=== PATIENT | female | born 1955 | race Caucasian/White ===

== ENCOUNTER 2016-11-20 13:08 | Day surgery (SDC) | payer BC ==
[2016-11-20] MEDS ORDERED: PROPOFOL 10 MG/ML VIAL IV ONE (14:00)
[2016-11-20] MEDS ORDERED: FENTANYL PF 100MCG/2ML VIAL IV ONE (14:00)
[2016-11-20] MEDS ORDERED: LIDOCAINE 2% MDV (20MG/ML) 20ML VIAL IV ONE (14:00)
--- NOTE | 2016-11-24 08:31 | Operative Note ---
DATE OF SURGERY: 11/20/2016 REFERRING PROVIDER: Noble Saldana DO PREOPERATIVE DIAGNOSIS: Worsening heartburn. POSTOPERATIVE DIAGNOSIS: Includes normal EGD. OPERATION: ESOPHAGOGASTRODUODENOSCOPY with photo. PROCEDURE: After informed consent was obtained, the patient was placed in the left lateral decubitus position in the endoscopy suite, sedated and monitored by the Department of Anesthesia. Once sedated, a well-lubricated [id number] gastroscope was placed in the posterior oropharynx and under direct visualization passed to the proximal esophagus. The endoscope was advanced to the proximal, mid and distal esophagus. The esophagus, GE junction, gastric body, antrum, pylorus, duodenal bulb and sweep were unremarkable. No ulcers, erosions, strictures, varices, mass, lesions were seen throughout the length of the esophagus, stomach, and duodenum. J-turn views of the proximal stomach were unrevealing. The endoscope was straightened. The endoscope was then advanced back through the pylorus and the duodenum once again. No findings or abnormalities were identified. The endoscope was slowly retracted through the distal stomach, gastric body, proximal stomach, and esophagus. No new findings or abnormalities were identified. RECOMMENDATIONS: I would suggest the patient increase her Protonix to twice daily before breakfast and dinner. If her symptoms persist, further investigation such as consideration of a 48-hour BUI would be worthwhile. At this point, there is no endoscopic evidence of any acid peptic disorder. As always, thank you for allowing me to participate in the health care of your patients. Albert Birmingham DO CC: Noble Saldana DO [facility]
== END 2016-11-20 15:20 | disposition home or self-care (01) ==
LOC: HOP 13:08
PROVIDERS: ATTEND Internal Medicine Gastroenterology
DX: R12 Heartburn (principal); I10 Essential (primary) hypertension; E11.9 Type 2 diabetes mellitus without complications
CPT/HCPCS: 43235; 00740; J3010

== ENCOUNTER 2017-12-07 09:00 | Day surgery (SDC) | payer BC ==
[2017-12-07] MEDS ORDERED: LIDOCAINE 2% MDV (20MG/ML) 20ML VIAL IV ONE (09:01)
[2017-12-07] MEDS ORDERED: PROPOFOL 10 MG/ML VIAL IV ONE (09:01)
--- NOTE | 2017-12-08 12:40 | Operative Note ---
DATE OF SURGERY: 12/07/2017 OPERATION: COLONOSCOPY to the cecum. INDICATION: Family history of colon cancer in 2 uncles. The patient also has a prior history of diverticulitis. Colonoscopy was performed at this time for high-risk screening. It has been 5 years since her last exam. ANESTHESIA: Intravenous sedation was administered by the department of anesthesiology and included Diprivan titrated to effect. PROCEDURE: Following informed consent from this alert individual including a discussion of the risks and benefits of the procedure and an opportunity for the patient to ask questions, the patient was in the left lateral decubitus position. A digital rectal examination was performed. Anal stenosis was noted. No masses were palpable. Following this, the Olympus QRY219 video colonoscope was inserted into the rectum without resistance. The rectal mucosa had a normal appearance with normal folds and distensibility. The colonoscope was advanced up through the to the level of the cecum without much difficulty. Throughout the bowel the mucosa appeared normal, the folds were normal, and the bowel was fairly well distensible. Scattered diverticula were noted in the sigmoid region. The cecum was defined by noting the appendiceal orifice and ileocecal valve. From the base of the cecum, the colonoscope was then slowly withdrawn and no abnormalities were noted except for the above-mentioned diverticulosis in the sigmoid colon. There were no polyps noted. Retroflexion in the rectum was endoscopically unremarkable. The endoscope was straightened and removed. The patient tolerated the procedure well and was returned to the recovery area in stable condition. IMPRESSION: 1. Mild sigmoid diverticulosis. 2. Anal stenosis. RECOMMENDATIONS: Because of the patient's family history of colon cancer, I did recommend a recheck colonoscopy in 5 years' time or sooner if problems arise. Followup will otherwise be with Dr. Troy Saldana. As always, thank you for allowing me to participate in the care of your patient. CC: Dr. Shana GRIFFITHS
== END 2017-12-07 11:12 | disposition home or self-care (01) ==
LOC: HOP 09:00
PROVIDERS: ATTEND Internal Medicine Gastroenterology
DX: Z12.11 Encounter for screening for malignant neoplasm of colon (principal); Z80.0 Family history of malignant neoplasm of digestive organs; Z87.19 Personal history of other diseases of the digestive system; K57.30 Diverticulosis of large intestine without perforation or abscess without bleeding; K62.4 Stenosis of anus and rectum; E78.00 Pure hypercholesterolemia, unspecified; E11.9 Type 2 diabetes mellitus without complications; I10 Essential (primary) hypertension
CPT/HCPCS: 00812; G0105

== ENCOUNTER 2018-06-01 07:21 | Day surgery (SDC) | payer BC ==
[~2018-06-01 07:21] MED LIST: ACETAMINOPHEN 1,000 MG/100 ML BTL IV ONE; FAMOTIDINE 20MG TABLET PO ONE; MECLIZINE 25 MG TABLET PO ONE; METOCLOPRAMIDE 10 MG TABLET PO ONE
[2018-06-01] MEDS ORDERED: PROPOFOL 10 MG/ML VIAL IV ONE (07:22)
[2018-06-01] MEDS ORDERED: KETOROLAC 30 MG/ML VIAL IVP ONE (07:22)
[2018-06-01] MEDS ORDERED: LIDOCAINE 2% MDV (20MG/ML) 20ML VIAL IV ONE (07:22)
[2018-06-01] MEDS ORDERED: SEVOFLURANE 250 ML INH ONE (07:22)
[2018-06-01] MEDS ORDERED: FENTANYL PF 100MCG/2ML VIAL IV ONE (07:22)
[2018-06-01] MEDS ORDERED: MIDAZOLAM HCL 2MG/2ML VIAL IV ONE (07:22)
[2018-06-01] MEDS ORDERED: HYDROCODONE/APAP 5/325MG TABLET PO ONE (07:22)
[2018-06-01] MEDS ORDERED: BUPIVACAINE 0.25% W/EPI MPF 30ML VIAL IVP ONE (07:22)
[2018-06-01] MEDS ORDERED: ONDANSETRON HCL IV 4 MG/2 ML VIAL IVP ONE (07:22)
--- NOTE | 2018-06-02 12:40 | Operative Note ---
DATE OF SURGERY: 06/01/2018 Surgeon: Zhang Faustin DO PREOPERATIVE DIAGNOSIS: Chondromalacia of the right knee. POSTOPERATIVE DIAGNOSES: 1. Torn medial meniscus right knee. 2. Median mid patella plica right knee. 3. 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 OPERATION: 1. Arthroscopic partial medial meniscectomy right knee. 2. Arthroscopic resection of medial mid patella plica right knee. 3. Arthroscopic chondroplasty of medial femoral condyle and patella right knee. DESCRIPTION OF PROCEDURE: This 62-year-old female was taken to the operating room and placed in the supine position on the operating room table. General anesthesia was induced and the right lower extremity was elevated. It was exsanguinated and the tourniquet inflated to 300 mmHg. Arthroscopic knee schroeder applied. Right knee prepped with Hibiclens and draped in the usual sterile fashion. An inferolateral portal was established for the 4 mm arthroscope, and initial evaluation of the joint demonstrated normal appearance of the suprapatellar pouch but there was a medial mid patella plica which was thickened and fibrotic and resected through an inferomedial portal utilizing the rotating shaver. There were grade 3 changes of the articular cartilage of the patella, especially in the median ridge and medial facet. Utilizing the rotating shaver, resection of unstable fragments of the articular cartilage was performed to stabilize the remaining cartilage of the patella. The trochlea, however, appeared to be normal with no defects in the articular cartilage being present there. The medial compartment was entered and grade 2 chondromalacia of the entire weightbearing surface of the medial femoral condyle was present. There was a small area of approximately 1.5 cm in diameter above the meniscal rest on the medial femoral condyle. That also demonstrated degenerative change. That was a small grade 3 lesion. The probing of the medial meniscus revealed a small tear of the posterior horn near the root of the meniscus, somewhat of an odd-shaped tear, triangular in shape. The superior leaflet did not extend all the way through to the inferior surface. Utilizing the basket forceps, we resected that fragment and used the rotating shaver to further smooth and contour. Re-probing did not reveal any full-thickness defects of the medial meniscus. No defects of the articular cartilage of the tibial plateau were present. The intracondylar notch was examined and found to be normal. The lateral compartment was entered. No articular cartilage defects were present there and probing of the lateral meniscus did not reveal any pathology. The wound was irrigated and suctioned. The instruments were removed. The portals infiltrated with 0.25% Marcaine with epinephrine. The portal sites were closed with 4-0 nylon sutures. Sterile dressings applied. The patient taken to the recovery room in satisfactory condition. GROSS PATHOLOGY: Grade 3 chondromalacia of the patella and grade 2 chondromalacia of the medial femoral condyle and grade 3 changes of a small defect just above the meniscal rest was present on the medial femoral condyle. A small tear near the root of the medial meniscus was present and was resected as described above. The patient also had a thickened fibrotic medial mid patella plica which was also resected. CC: DO TUNDE Pete
== END 2018-06-01 11:18 | disposition home or self-care (01) ==
LOC: SUR 07:21
PROVIDERS: ATTEND Orthopaedic Surgery
DX: S83.241A Other tear of medial meniscus, current injury, right knee, initial encounter (principal); M67.51 Plica syndrome, right knee; M22.41 Chondromalacia patellae, right knee; I10 Essential (primary) hypertension; E11.9 Type 2 diabetes mellitus without complications; Z79.4 Long term (current) use of insulin; G25.81 Restless legs syndrome; E78.00 Pure hypercholesterolemia, unspecified
CPT/HCPCS: J1885; J2405